=== PATIENT | female | born 1990 | race Caucasian/White ===

== ENCOUNTER → 2017-01-16 | Outpatient (CLI) | payer OTHER ==
--- NOTE | 2017-01-16 14:16 | US ---
EXAMINATION TYPE: US OB >= 14 wk fetus DATE OF EXAM: 01/16/2017 12:46 PM COMPARISON: None CLINICAL HISTORY: 26-year-old female Z36 confirm dates. 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 The inferior placental margin located posteriorly co ntacts the internal cervical os. PREVIA: Marginal placenta previa. SHELBY: 14 cm Normal CERVICAL LENGTH (transabdominal: norm > 3.0cm): 3.8 cm BIOMETRY PRESENTATION: Variable LIE: Oblique BPD: 3.0 cm 15 weeks / 4 days HC: 10.8 cm 15 weeks / 1 days AC: 9.1 cm 15 weeks / 2 days FL: 1.8 cm 15 weeks / 2 days ESTIMATED WEIGHT IN GRAMS: 119 grams ESTIMATED WEIGHT IN LBS/OZS: 0 lbs. 4 oz. WEIGHT PERCENTAGE BASED ON ESTABLISHED DATES: 38% HC/AC: 1.2 Normal FL/AC: 19 HEART RATE: 139 bpm RHYTHM: Normal MATERNAL WALL MEASUREMENT: 6 cm from skin to anterior uterine wall (if exam limited due to body habit us). IMPRESSION: 1. Single live uterine with estimated gestational age of 15 weeks 2 days by LMP. Current ul trasound biometry is concordant (15 weeks 4 days) placing the child at the 38th percentile for weight . 2. Anterior placenta that wraps around posteriorly. The posterior aspect of the placenta shows a yoni inal previa. 3. Complete survey is recommended at 18-20 weeks.
== END | disposition home or self-care (01) ==
LOC: RADUSWWP 12:04
PROVIDERS: ATTEND Obstetrics & Gynecology
DX: O44.02 Complete placenta previa NOS or without hemorrhage, second trimester (principal); Z3A.15 15 weeks gestation of pregnancy
CPT/HCPCS: 76805

== ENCOUNTER → 2017-02-12 | Outpatient (CLI) | payer OTHER ==
[2017-02-12 12:30] LABS: CH 32.2; CHCM 35.2; HCT 34.7 % (34.0-46.0); HDW 3.14; HGB 12.2 gm/dL (11.4-16.0); MCH 32.2 pg (25.0-35.0); MCHC 35.1 g/dL (31.0-37.0); MCV 91.9 fL (80.0-100.0); Mean Platelet Volume 7.5; RBC 3.78 m/uL (3.80-5.40); RDW 13.6 % (11.5-15.5); WBC 6.5 k/uL (3.8-10.6)
[2017-02-12 12:39] LABS: Glucose 86 mg/dL (74-99); Non-African American GFR(MDRD) >60 (>60 ml/min/1.73 sqM)
[2017-02-12 13:13] LABS: Hepatitis B Surface Ag Index 0.06
[2017-02-13 06:44] LABS: HIV-1/HIV-2 Ab Screen NONREAC (NON REAC)
[2017-02-13 07:40] LABS: Toxoplasma Antibody (IgG) <3.0 IU/mL (<7.2)
[2017-02-14 12:17] LABS: Alpha Fetoprotein 40.6 ng/mL; Alpha Fetoprotein (M.O.M) 1.21 (Negative); B-HCG (M.O.M.) 0.82; Gestational Age (days) 1; Human Chorionic Gonadotropin 12.4 IU/mL; Interpretation SeeBelow; Maternal Age at EDD (Yrs) 28; Unconjugated Estriol (M.O.M.) 1.29
== END | disposition home or self-care (01) ==
LOC: LABWHC1 11:33
PROVIDERS: ATTEND Obstetrics & Gynecology
DX: Z34.82 Encounter for supervision of other normal pregnancy, second trimester (principal); Z3A.00 Weeks of gestation of pregnancy not specified
CPT/HCPCS: 36415; 82105; 82565; 82677; 82947; 84702; 85027; 86336; 86762; 86777; 86778; 86780; 86850; 86900; 86901; 87340; 87389

== ENCOUNTER → 2017-03-19 | Outpatient (CLI) | payer OTHER ==
[2017-03-19 12:20] LABS: CH 31.9; CHCM 34.2; HCT 37.1 % (34.0-46.0); HDW 3.11; HGB 12.6 gm/dL (11.4-16.0); MCHC 34.1 g/dL (31.0-37.0); MCV 93.8 fL (80.0-100.0); Mean Platelet Volume 8.2; RBC 3.95 m/uL (3.80-5.40); RDW 13.8 % (11.5-15.5); WBC 6.5 k/uL (3.8-10.6)
== END | disposition home or self-care (01) ==
LOC: LABWHC1 10:38
PROVIDERS: ATTEND Obstetrics & Gynecology
DX: Z34.82 Encounter for supervision of other normal pregnancy, second trimester (principal); Z3A.00 Weeks of gestation of pregnancy not specified
CPT/HCPCS: 36415; 82950; 85027